=== PATIENT | male | born 1985 | race Caucasian/White ===

== ENCOUNTER 2024-02-08 11:15 | Outpatient (RCR) | payer OTHER, BC, SELFPAY ==
--- NOTE | 2024-01-25 11:55 | PT.OPEX ---
PT [place] [facility] Eval PT [facility] Outpatient Eval Start: 01/25/24 09:05 Freq: Status: Active Protocol: Document 01/25/24 09:05 [facility] (Rec: 01/25/24 10:39 [facility] [id number]) E-signed By Dean Fong, PT Physical Therapy Outpatient Evaluation Insurance Information Insurance Name Chriss Rowley Medical Diagnosis M54.32 Sciatica, left side Treating Diagnosis Low back pain M54.5 Low back strain S39.012 Imaging Report Information none Referring MD Lucia Kauffman APRN Subjective Preferred Name Fabian Subjective Fabian reports that they had a big mess at work 01/19/24 and he was shoveling it up when he felt a big pop and lightening down his left leg. His back tightened up real bad so had he to leave work and went to the urgent care. He was prescribed muscle relaxers and steroids. His back is starting to feel better, but he still has stiffness in his low back. Something just feels off. He reports he does not have ongoing leg symptoms since the original incident. PMH: strained back one time ~9 years ago, vadim shoulder arthritis, obesity Tomorrow is his last dose of 20 mg prednisone. He is still taking mm relaxants. He is off work until tomorrow when he is scheduled to start without restrictions a 12 hr shift. 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 Work demands: lifting at least 50 lb bags repetitively (6x every 45 minutes), kneeling/ bending/twisting on cleaning days. Precautions Therapy Limitations/Systems Review Not Limited Objective Other/Pertinent Objective Posture: hyperlordotic at ~L4/ 5 Lumbar; AROM Flexion: 80% end range stretch pain, no increase w/ repeated movement Extension: 60%, + concordant pain L buttock Sidebend: WNL. Mild R stretch pain w/ left sidebend SLS: Left: at least 10 sec, no increase in LBP Hip ROM: Left: Flexion: 95 deg ER: WNL IR: 20 deg Extension: ~10/15 deg LE strength: Left Hip flexion: 4+/5 Hip extension: 4-/5 Hip ER: 5/5 Hip Abd: 4/5 Ankle PF: (SL heel raise) 10x each asymptomatic Special test: Left SLR: negative for neural tension; hamstring tension at ~60 deg hip flex TIARA: negative for LBP/ buttock pain (+ groin discomfort) Hip quadrant: negative Prone knee flexion: negative DKTC (disc compression): highly irritable/+ for LBP Muscle flexibility: reproduction of pain with piriformis (upper fiber) stretch, highly irritable Palpation: + TTP left piriformis and left PSIS, highly irritable Spinal mobility: Prone PAs: highly irritable w/ sacral and L5 PAs G1/2 + TTP LS paraspinals Functional Test Performed & Score weighted KB lift from chair height (~15): W/ cues for good form, pain free until 25 lbs, then reproduction of concordant sign with one lift Assessment Assessment/Impression 38 year old male presents with low back pain following work injury on 01/19/24 at [employer]. Pain was severe enough that he had to leave work and go to urgent care where he was prescribed steroids and muscle relaxers, which he is still on. While pain has decreased since the injury, he is still highly irritable with palpation testing and transitional movements. Disc compression testing was + for concordant sign. While Fabian appears to have clearly sustained soft tissue injury/ strain from the injury , I cannot rule out disc/ annulus injury at this time. I recommend that Fabian not return to work for the remainder of this week to complete medication course and return to skilled PT for a safe progression of back rehab to prevent reinjury upon return to work. Primary Functional Limitations transitional movements, heavy lifting, work related tasks Plan of Care Rehabilitation Potential Excellent Rehabilitation Potential Comments Good. Fabian is self motivated, cooperative, pleasant. Expresses desire to return to work when ready. Physical Therapy Goals In 2-4 weeks, patient will: 1) Demonstrate ability to lift 50 lb bag 6x consecutively without LBP 2) Demo ability to get down on hands/knees to simulate cleaning tasks 3) Perform all transitional movements painfree and with ease 4) Demo good body mechanics with work simulated tasks and Coordination/Communication With Referral Source Treatment Plan/Direct Interventions Manual Therapy,Neuromuscular Re-ed,Self-Care/Home Management,Therapeutic Activities,Therapeutic Exercises,Other - See Comments Direct Interventions Clarification back rehab for return to work Comments Frequency/Duration 2x/week for 2-4 weeks Patient Will Be Discharged From Therapy Completion of LTG(s), Independent w/HEP, Independently Progressing Evaluation Billing Untimed Code Treatment Minutes 30 Complexity Moderate Certification Information Provider Signature Required Yes Provider Signature Shows Agreement With POC & Medical Necessity Physician NPI Number Write NPI# Here Physician Comment/Change : Physician Signature & Date Requested Please Sign/Date Here
== END 2024-06-07 23:59 | disposition home or self-care (01) ==
PROVIDERS: Visit Provider Nurse Practitioner Family
DX: M54.32 Sciatica, left side (principal); S39.012A Strain of muscle, fascia and tendon of lower back, initial encounter; Z51.89 Encounter for other specified aftercare
CPT/HCPCS: 97110; 97140; 97162; 97530

== ENCOUNTER 2024-11-09 10:20 | Outpatient (CLI) | payer BC, SELFPAY | END 2024-11-09 10:21 | disposition home or self-care (01) | LOC: NFLDREF 11-13 16:43 | PROVIDERS: PCP Internal Medicine; Referring Provider Internal Medicine; Visit Provider Internal Medicine | DX: E66.01 Morbid (severe) obesity due to excess calories (principal) | CPT/HCPCS: 80053; 80061 ==